=== PATIENT | female | born 1990 | race Caucasian/White ===

== ENCOUNTER 2021-06-17 09:48 | Day surgery (SDC) | payer BC, SELFPAY ==
[2021-06-17] VITALS (7 sets, daily range): BP systolic 95–107; BP diastolic 52–67; PULSE 68–78; RESP 12–16; TEMP 36.2–36.7; O2SAT 96–100
--- NOTE | 2021-06-17 | PATH_ITS ---
[facility] Accession Number: [id number] . 01 Material submitted: . product of conception - PRODUCTS OF CONCEPTION . 02 Diagnosis: Products of Conception: Products of conception identified. [facility] 06/20/2021 0834 Local . 02 Electronically signed: . Radha Irizarry MD, Pathologist NPI- [id number] . 01 Gross description: . The specimen is received in formalin, labeled products of conception, and consists of multiple muñiz-pink fragments of soft tissue and clotted blood measuring 6.5 x 5.0 x 2.0 cm in aggregate. Chorionic villi are identified. No parts are identified. [employer] Super[employer] sections are submitted in cassettes A1-A3. ([id number]) /[facility] 06/18/2021 1049 Local . 02 Pathologist provided ICD-10: O02.1 . 02 CPT . 201801 Performed at: 01 [facility] Cytology [address] [place] [id number] MD Rey Martin MD Phone: [phone] Performed at: 02 [facility] [address] [place], [place] [id number] MD Shayna Amin MD Phone: [phone]
[2021-06-17 10:29] LABS: COVID19 -Nasal RAPID Negative (Negative)
--- NOTE | 2021-06-17 10:45 | P.HP_ITS ---
History of Present Illness History of Present Illness Date Patient Seen: 06/17/21 Time Patient Seen: 10:46 Chief complaint: SDC Narrative: Patient is a 31-year-old 1 para 0 with a missed A/B at 8 weeks gestation. Patient History Surgical History (Updated 06/17/21 @ 10:46 by Heidy Young MD) S/P tonsillectomy and adenoidectomy Family & Social History Social History: household members spouse Tobacco & Substance use: Smoking Status Never smoker alcohol intake former Substance Use Type does not use Meds Home Medications and Allergies Home Medications Medication Instructions Recorded Confirmed Type No Known Home Medications 06/17/21 06/17/21 History Allergies Allergy/AdvReac Type Severity Reaction Status Date / Time No Known Drug Allergies Allergy Verified 06/17/21 10:25 Exam Vital Signs (past 8 hours): - 06/17/21 10:38 Temperature 97.4 F L Pulse Rate 69 Respiratory Rate 13 Blood Pressure 95/62 Pulse Oximetry 100 Oxygen Delivery Method Room Air Narrative Exam Narrative: HEENT: No thyromegaly, no anterior cervical or supraclavicular lymphadenopathy. Lungs:Clear to auscultation bilaterally, no wheezes. Cardiovascular: Regular rate and rhythm, no murmurs, rubs, or gallops. Abdomen: No scars. No hepatosplenomegaly. No masses palpable. External genitalia: Normal Vagina: Normal Cervix: Normal Bimanual exam: 8 Week size uterus Objective Labs Labs: Laboratory Results - last 24 hr 06/17/21 09:59 SARS-CoV-2 (PCR) Negative Assessment & Plan Assessment & Plan narrative: Assessment: 31-year-old 1 para 0 with a missed A/B at 8 weeks Pancreatitis earlier this year Plan: Suction D&C The risks, benefits, and alternatives to the procedure were explained to the patient. The risks including bleeding, infection, and uterine perforation. She understands these risks and agrees to proceed. A full par Q was held and co nsent form was signed. Type and screen COVID-19 COVID-19 status: Negative Result date/Date tested (Pos, Neg/Pending): 06/17/21 Time Spent With Patient Time with patient: 15-24 minutes
[2021-06-17] MEDS: LACTATED RINGERS 1,000 ML 42 ML IV (10:47)
--- NOTE | 2021-06-17 10:50 | PM.PREOP ---
Pre-operative Note COVID-19 COVID-19 status: Negative Result date/Date tested (Pos, Neg/Pending): 06/17/21 Interval Note History & Physical reviewed/Exam performed by Physician: Yes Changes to H&P: No H&P completed within 30 days and has changed as indicated here:: 06/17/21
--- NOTE | 2021-06-17 11:40 | P.OP_ITS ---
Operative Date/Time/Diagnoses Date of procedure: 06/17/21 Time of procedure: 11:40 Pre-op diagnosis: Missed AB at 8 weeks Post-op diagnosis: same Procedure & Clinicians Procedure: Procedures Operation Date: 06/17/21 11:00 Actual Procedure Side Surgeon p Suction Dilation and Curettage Heidy Young MD Surgeon: Heidy Young Anesthesia Type: General (LMA) Operative Notes Findings: 8 week size anteverted uterus Large amount of products conception Closure Type: not applicable Specimen(s): products of conception Estimated blood loss (mL): 100 Blood products transfused: none Procedure in detail: After informed consent was obtained, the patient was taken to the operating room where she was placed in the dorsal supine position. After adequate LMA general anesthesia was achieved, she was placed in the dorsal lithotomy position, and prepped and draped in the usual sterile fashion. A time-out was performed. A bivalve speculum was placed into the vagina and the anterior lip of the cervix grasped with a single-tooth tenaculum. The cervical os was sequentially dilated until the # 8 Hegar dilator could pass easily into the endometrial cavity. Several passes with suction revealed a large amount of amniotic fluid and tissue. Several passes with suction revealed blood o nly. Gentle sharp curettage was performed yielding minimal amount of tissue. Several more passes with suction revealed blood only. There was minimal bleeding from the cervical os. The instruments were removed from the uterus. The single-tooth tenaculum was removed from the anterior lip of the cervix. The bivalve speculum was removed from the vagina. Sponge, lap, and instrument counts were correct x2. The patient tolerated the procedure well, and was taken to PACU in stable condition. Complications: none Post-operative Condition: stable Disposition: PACU Plan for aftercare: Home after recovery
--- NOTE | 2021-06-17 11:48 | SUR.OPER ---
Lithotomy on padded OR bed, head on pillow, arms secured on padded arm boards at <90 degrees abduction. Legs secured in padded yellow fins stirrups.
[2021-06-17] MEDS: RHO(D) IMMUNE GLOBULIN 1,500 UNIT SYRINGE 1500 UNIT IM (13:28)
--- NOTE | 2021-06-17 13:31 | SUR.PHASEII ---
Patient returned for RHo(Immune) short which was given to left deltoid per Dr Young and MD order in computer. Pt is O Negative. Pt given patient instructions from box and RH card.
== END 2021-06-17 12:25 | disposition home or self-care (01) ==
PROVIDERS: PCP Family Medicine; Referring Provider Obstetrics & Gynecology; Visit Provider Obstetrics & Gynecology
PROC: (CPT 58120; principal; 2021-06-17 11:00)
DX: O02.1 Missed abortion (principal); Z3A.08 8 weeks gestation of pregnancy
CPT/HCPCS: 59820; 36415; 86850; 86870; 86900; 86901; 87635; J1100; J1885; J2405; J2704; J2790; J3010